=== PATIENT | female | born 1945 | race Caucasian/White ===

== ENCOUNTER → 2017-02-13 | Outpatient (CLI) | payer OTHER, BC ==
[~2017-02-13] VITALS: Ht 165.1 cm; Wt 92.1 kg
[~2017-02-13] MED LIST: ACTONEL 35 MG35 M1 PO; ASPIRIN81 M2 PO; BUTRANS1 EAC1 TD; BUTRANS1 EAC2 TD; CALCIUM 500 +1 EAC5 PO; CALCIUM CITRAT1 EA19 PO; CRESTOR20 MG PO; ERYTHROCIN STE250 MG PO; FENTANYL PA25 MCG/HR TP; FIBER SUPPLEME283 GM; FISH OIL 1,0001 EAC9 PO; GABAPENTIN PO; GABAPENTIN100 MG PO; HYDROCODON-ACE1 EAC4 PO; HYDROCODON-ACE1 EAC5 PO; LEVOTHYROXIN0.112 M1 PO; LIBRAX; LIBRAX PO; LINZESS290 MCG PO; LIPITOR40 MG PO; LISINOPRIL20 MG PO; LOPRESSOR50 PO; MAGOX 400400 MG PO; MIRALAX255 GM PO; MOBIC15 MG PO; MOVANTIK25 MG PO; MULTIVITAMINS1 EAC7 PO; NATURAL LUTEIN20 MG PO; NEURONTIN100 MG PO; NEURONTIN600 MG PO; NORCO 10-325 T1 EACH PO; NORTRIPTYLINE H10 M2 PO; NORTRIPTYLINE H25 M3 PO; NORTRIPTYLINE H50 M3 PO; OMEPRAZOLE40 MG PO; ONDANSETRON HCL4 M2; PAMELOR75 MG PO; POTASSIUM20 PO; PRINZIDE 20-251 EACH PO; REGLAN 10 MG TA10 MG PO; SENNA-S TABLET1 EACH PO; SYNTHROID137 MCG PO; SYNTHROID150 MCG PO; TRAZODONE HCL50 MG PO; VYTORIN 10-801 EACH PO; XANAX 0.5 MG0.5 MG PO; ZANAFLEX4 MG PO; ZOLOFT 50 MG TA50 MG PO; ZOLOFT100 MG PO; ZOLOFT50 MG PO; [UNRECOGNIZED DRUG - OTHER] PO
--- NOTE | ~2017-02-13 | HPC ---
[facility] [address] [place] [address] PAIN MANAGEMENT CONSULTATION Name: FRANKIETIFFANI K Room #: REG [facility]ENTER[facility] Carlos.#: [id number] Admission: 02/13/17 Attend Phys: Faizan Rowley MD Discharge: Date of : 41 Report #: [id number] THIS REPORT FOR: //name// CC: Leandro Rowley DATE OF SERVICE: 02/13/2017 Followup visit for management of chronic abdominal pain. The patient returns to the pain clinic today for renewal of her medication. We had a long discussion today focusing mostly on polypharmacy. The patient has longstanding abdominal pain and has been using medications, hydrocodone 10/325 taken up to 4 times a day along with tizanidine to help control her pain. Today, she reports that she is having increasing constipation. She also has a restless right foot. It is only the right foot and it only involves the ankle down. She has seen a automotive parts person and orthopedist and she has seen a neurologist, she is now scheduled for an EMG. She states the restless foot is only at night time. It is disturbing to her. She scores that discomfort as a 9, although she does not describe it as pain. Her chronic lower abdominal pain has been described as spasmodic. Over a period of time, she has consistently reported that it helps with her pain to take the hydrocodone. We have used palliative treatment for her under close observation. She says that recently despite Senna, MiraLax and even the use of Movantik and Linzess, her constipation has worsened. She has self-tapered it to 30 mg a day and I have encouraged her to taper even further. The led a long discussion today about polypharmacy. She is receiving multiple centrally acting medications from different physicians including myself. Centrally acting medicines are gabapentin, hydrocodone, tizanidine, nortriptyline, alprazolam. We talked about how medications can work in combination providing paradoxical responses including insomnia. We discussed the important side effect of constipation for her abdominal pain. I do think it is valuable for her to try and taper as low as she can or completely off of the hydrocodone to see how she feels. Tapering instructions were provided. PHYSICAL EXAMINATION: GENERAL: She is pleasant, alert and oriented. No signs of overmedication or depression. VITAL SIGNS: Blood pressure 150/92 and BMI is 33.8. ABDOMEN: Reveals diffuse tenderness particularly in the lower portion of the abdomen and across the pelvis. Bowel sounds are present. EXTREMITIES: Examination of the foot reveals no allodynia, no light touch discomfort, no numbness. Good range of motion of the ankle joint. Pulses are [facility] [address] [place] [address] PAIN MANAGEMENT CONSULTATION Name: TIFFANI DAVID Room #: REG SHEKHAR Pérez#: [id number] Admission: 02/13/17 Attend Phys: Faizan Rowley MD Discharge: Date of : 41 Report #: [id number] palpable in the lower extremities with bounding dorsal pedis noted on the right foot. Straight leg raising is negative. She has no radicular type sensations. IMPRESSION: 1. Chronic abdominal pain. 2. Restless right foot syndrome. 3. Management of opioid medication. Medications were renewed with a reduction in dose and tapering instructions. I plan to see her back in the pain clinic in 3 months. By: [id number] Faizan Rowley MD /nt
[2017-02-13 09:07] VITALS: BP 150/92
== END ==
LOC: PAIN 06:39
DX: R10.9 Unspecified abdominal pain (principal); G25.81 Restless legs syndrome; I10 Essential (primary) hypertension; Z87.891 Personal history of nicotine dependence

== ENCOUNTER → 2017-03-30 | Outpatient (CLI) | payer OTHER, BC ==
[~2017-03-30] VITALS: Ht 165.1 cm; Wt 92.5 kg
[~2017-03-30] MED LIST changes: +COZAAR 25 MG TA25 M1 PO; +ONDANSETRON HCL4 M2 PO
--- NOTE | ~2017-03-30 | HPC ---
[facility] [address] [place] [address] PAIN MANAGEMENT CONSULTATION Name: FRANKIETIFFANI K Room #: REG [facility].#: [id number] Admission: 03/30/17 Attend Phys: Faizan Rowley MD Discharge: Date of : 41 Report #: [id number] THIS REPORT FOR: //name// CC: Leandro Rowley [facility] DATE OF SERVICE: 03/30/2017 Followup visit for new onset lumbar radicular pain. The patient returns to pain clinic today, is complaining primarily of pain into her right leg. Pain is severe, she scores as high as 9 at nighttime, it radiates through her right calf into her foot with a burning sensation. It is constant, lowest score is a 6/10 during the daytime. She has tried gabapentin with no help, also carbamazepine provided by her primary which caused nausea. She is on no medication other than hydrocodone and she says it does not seem to help the pain much. X-rays have shown that there is no worrisome malalignment, although she does have age-related diffuse disk desiccation and facet hypertrophy. This is particularly notable at L5-S1. There is fortunately no notable canal or foraminal compromise. An EMG was performed; however, which showed that she has S1 radiculopathy, which would be consistent on the right with her symptoms. She is here today for an epidural injection. I also provided for her medication chronically due to abdominal pain. She used hydrocodone , which has been renewed within the last month under our agreement, she does not need medication. PHYSICAL EXAMINATION: Affect is pleasant. She is able to move from sitting to standing position but walks with mild antalgic features. Blood pressure is 122/72, heart rate 100. Straight leg raising is positive, reproducing some symptoms into the calf. No focal weakness is noted; however, and sensation is normal to light touch. IMPRESSION: Lumbar radiculopathy on the right. This involves L5 and she has EMG evidence also and S1 radicular changes. PLAN: Epidural steroid injection, right paramedian L5-S1. The patient was taken to fluoroscopic suite, placed prone, skin prepped with ChloraPrep. Skin anesthetized in the right of midline at L5-S1. A 20-gauge Tuohy epidural needle advanced on the first attempt in the epidural space with loss of resistance. No blood or CSF aspirated. 1 mL of Omnipaque injected. [facility] [address] [place] [address] PAIN MANAGEMENT CONSULTATION Name: TIFFANI DAVID Room #: REG PIPERTheo Pérez#: [id number] Admission: 03/30/17 Attend Phys: Faizan Rowley MD Discharge: Date of : 41 Report #: [id number] Nice spread of dye was observed along the L4, L5 and S1 nerve root in lateral recess followed by 3 mL of 0.5% lidocaine mixed with 80 mg triamcinolone. She tolerated the procedure well and was observed for 45 minutes and discharged with a followup visit planned in 2 months. By: [id number] 1724 Faizan Rowley MD /nt
[2017-03-30 09:17] VITALS: BP 125/76
== END ==
LOC: PAIN 06:59
DX: M54.16 Radiculopathy, lumbar region (principal)

== ENCOUNTER → 2017-04-20 | Outpatient (CLI) | payer OTHER, BC ==
[~2017-04-20] VITALS: Ht 165.1 cm; Wt 91.7 kg
[~2017-04-20] MED LIST changes: +SENOKOT-S1 TA1 PO
--- NOTE | ~2017-04-20 | HPC ---
[facility] [address] [place] [address] PAIN MANAGEMENT CONSULTATION Name: HA DAVIDMitesh Castaneda Room #: REG [facility].#: [id number] Admission: 04/20/17 Attend Phys: Faizan Rowley MD Discharge: Date of : 41 Report #: [id number] THIS REPORT FOR: //name// CC: Leandro Rowley DATE OF SERVICE: 04/20/2017 Followup visit for chronic abdominal pain, now with right foot spasms. The patient returns to pain clinic today and says that the epidural injection did not help a slight bit. Pain is just the same as it was before. She does have an EMG the suggested that she has a right lumbar chronic radiculopathy, although I am not convinced that this correlates well with her pain. She does not have any radiating component. All of her pain is in her foot. She describes it more of a spasm. It is worse as the day goes on with weightbearing. There is no pain in the calf, thigh, buttock or back. MEDICATIONS: Movantik, Cozaar, Zofran, hydrocodone, tizanidine, Actonel, omeprazole, nortriptyline, metoprolol, Synthroid, rosuvastatin, Senokot S, calcium, Lutein, multivitamins and alprazolam. ALLERGIES: None. PHYSICAL EXAMINATION: GENERAL: Her affect is pleasant. VITAL SIGNS: Blood pressure is 143/80, heart rate 85 and respirations 16. BMI is 33. MUSCULOSKELETAL: Examination of the back reveals no tenderness. Good range of motion. Straight leg raising does not reproduce pain. Tenderness of the hip is not present. Good range of motion of the hip, knee and ankle joint. She has no light touch allodynia or discomfort in the foot, but tenderness across the heel and also along the sole of her foot and dorsum as well. IMPRESSION: Chronic intractable foot pain with neuropathic features. Additional consideration would be the possibility of plantar fasciitis with a bit of an unusual presentation. RECOMMENDATIONS: I do not think she is going to benefit from an injection at this time. So, I have suggested instead we continue her hydrocodone and begin a compound cream. Orders were faxed over to start pharmacy for a compound cream containing ketoprofen, baclofen, cyclobenzaprine, gabapentin, lidocaine and Lipoderm mixed with 2 refills. She is to apply one inch or so to the affected area 3-[address] [address] PAIN MANAGEMENT CONSULTATION Name: TIFFNAI DAVID Room #: REG CL Beto#: [id number] Admission: 04/20/17 Attend Phys: Faizan Rowley MD Discharge: Date of : 43 Report #: [id number] Her followup visit is planned in 1-2 months. I renewed her medication for oral control as well, hydrocodone 10/325 one tablet 4 times daily under the terms of our opioid agreement. She understands the importance of safeguarding all these medications and will keep them solely for her own use. Followup visit is planned as needed. <ELECTRONICALLY SIGNED> By: Faizan Rowley MD 04/20/17 1714 1405 1501 Faizan Rowley MD /nt
[2017-04-20 09:13] VITALS: BP 143/80
== END | disposition home or self-care (01) ==
LOC: PAIN 06:54
DX: M25.571 Pain in right ankle and joints of right foot (principal); G89.29 Other chronic pain; F11.20 Opioid dependence, uncomplicated; Z79.899 Other long term (current) drug therapy; Z87.891 Personal history of nicotine dependence

== ENCOUNTER → 2017-07-31 | Outpatient (CLI) | payer OTHER, BC ==
[~2017-07-31] VITALS: Ht 177.8 cm; Wt 95.6 kg
--- NOTE | ~2017-07-31 | HPC ---
[facility] [address] [place] [address] PAIN MANAGEMENT CONSULTATION Name: TIFFANI DAVID Room #: REG [facility] Osito.#: [id number] Admission: 07/31/17 Attend Phys: Faizan Rowley MD Discharge: Date of : 43 Report #: [id number] THIS REPORT FOR: //name// CC: Leandro Rowley DATE OF SERVICE: 07/31/2017 REASON FOR VISIT: She is here for followup visit, right lower extremity pain with radiation into calf and foot. HISTORY OF PRESENT ILLNESS: The patient returns to pain clinic today complaining primarily of right foot spasms. She frequently reminded me that this is not what she would describe as pain but in her terms uncomfortable spasm-like sensation. We spent some time trying to recess the quality of the pain, I would describe it as a neuropathic-like dysesthesia. She has previously described it only in her foot. Today, it appears to be more radicular following a distribution through the calf. She has had evaluation by Neurology, and this has been deemed a chronic radiculopathy. Previously, I felt that this was not correlating as well with the pain description, but today they seem to fit. Pain is worse in the great toe, which would be consistent with the L4 distribution. She has chronic abdominal pain, which is her primary pain generator and has been on [place] for a number of years under terms of an opioid agreement. This has only modest benefit for her foot. She has had trials of antidepressant and anti-seizure drugs including gabapentin and Lyrica with little improvement. PHYSICAL EXAMINATION: Her blood pressure is 144/85. Heart rate is 95. Her back is mildly painful. She has no pain with forward flexion, slight increase in pain with back extension radiating into the right leg. Straight leg raising is negative. Sensation is normal. No focal weakness is noted. Deep tendon reflexes are absent in the knee and ankle. IMPRESSION: 1. Chronic abdominal pain. 2. Right leg pain with EMG evidence suggesting right chronic lumbar radiculopathy. Majority of pain or dysesthesia follows the L4-L5 distribution. RECOMMENDATIONS: Right L4-L5 transforaminal epidural injection under fluoroscopic guidance. Potential benefits and risks reviewed. Goals of treatment discussed. She would like to proceed today with an injection trial. Further injections and other treatments will depend upon her response today. PROCEDURE: She was taken to the fluoroscopic suite for treatment and placed prone. She was prepped with ChloraPrep, and skin was anesthetized over the L4-L5 neural foramen. Using triplanar fluoroscopic views, I advanced the needle [address] [address] PAIN MANAGEMENT CONSULTATION Name: TIFFANI DAVID Room #: REG SHEKHAR Pérez#: [id number] Admission: 07/31/17 Attend Phys: Faizan Rowley MD Discharge: Date of : 43 Report #: [id number] into the neural foramen without difficulty of 1 mL of Omnipaque. It was injected demonstrating spread of dye into the epidural space. It was followed by 3 mL of 0.5% lidocaine mixed with 80 mg of triamcinolone. She tolerated the procedure well and was observed for 45 minutes and discharged. Followup visit planned as needed in 1-2 months. PLAN: I have renewed her medication at previous visit, and I reviewed her responsibilities under terms of our opioid agreement. By: 1608 [id number] Faizan Rowley MD /nt
[2017-07-31 08:59] VITALS: BP 144/85
== END | disposition home or self-care (01) ==
LOC: PAIN 07:04
DX: M54.16 Radiculopathy, lumbar region (principal)

== ENCOUNTER → 2017-11-27 | Outpatient (CLI) | payer OTHER, BC ==
[~2017-11-27] VITALS: Ht 165.1 cm; Wt 94.3 kg
[~2017-11-27] MED LIST changes: +ADULT SUPPOSIT1 EACH RECTAL; +AMITRIPTYLINE H10 M3 PO; +CYMBALTA30 MG PO; +ERYTHROMYCIN250 MG PO; +FLEXERIL PO; +LOSARTAN-HCTZ1 EAC1 PO; +LYRICA 75 MG CA75 MG PO; +OXYCODONE-ACET1 EAC2 PO; +SYSTANE BALANCE10 ML OPHTHALMIC; +TRAZODONE HCL100 MG PO
--- NOTE | ~2017-11-27 | HPC ---
[facility] [address] [place] [address] PAIN MANAGEMENT CONSULTATION Name: FRANKIETIFFANI K Room #: REG [facility].#: [id number] Admission: 11/27/17 Attend Phys: Faizan Rowley MD Discharge: Date of : 43 Report #: [id number] THIS REPORT FOR: //name// CC: Leandro Rowley DATE OF SERVICE: 11/27/2017 SUBJECTIVE: Followup visit for chronic abdominal pain and chronic low back pain with radiculopathy. The patient returns to the pain clinic today and was in the clinic for a 25-minute followup visit to discuss her current use of medications. She has nearly run out of medication, failing to make an appointment for refills on her opioid medication provided under terms of written opioid agreement. Her pain has increased substantially with the reduction in medication. She scores it as a 7/10. Pain is in her low abdomen and chronic. She also has pain in her right foot, which involves the great toe and the top of her foot in the L4 and L5 distribution. She says that she feels a constant turning sensation there and has a "charley horse" sensation also in the foot, suggesting some muscle spasm. She has seen Dr. Siddhartha Chandler who she reports has suggested that I consider a selective right S1 nerve root block. We discussed this later in her visit. She has found nothing other than the use of modest dose of opioid taken on a daily basis to help with her abdominal pain and her leg pain. Despite the benefit, she acknowledges she is disappointed that we do not have more to offer her. She has had trials of multiple medications including nonsteroidal anti-inflammatory drugs and several neuropathic medications including gabapentin, Tegretol and she is currently on an increasing dose of Lyrica directed by Dr. Chandler. She has not found it to be helpful. She has tried to remain active. She does suffer from chronic mood disorder and often presents depressed in our office. MEDICATIONS: All medications were reviewed and reconciled. They are as follows: Trazodone, Lyrica, hydrocodone 10/325 four tablets daily for a total of 40 morphine equivalents per day, Movantik p.r.n. treating her only side effect constipation, Cozaar, fiber supplements, [place], omeprazole, metoprolol, levothyroxine, Crestor, Senokot-S, Lutein, multivitamins and alprazolam 0.5 mg taken chronically as needed for anxiety. ALLERGIES: None. PQRS REVIEW: She does not complain of significant osteoarthritis[place] [address] PAIN MANAGEMENT CONSULTATION Name: TIFFANI DAVID Room #: REG [facility]ERS[facility].#: [id number] Admission: 11/27/17 Attend Phys: Faizan Rowley MD Discharge: Date of : 43 Report #: [id number] smoke. She is on an opioid provided to her with written agreement. Terms of our opioid agreement have been reviewed. We have discussed at some length her responsibilities with the medication, the opioid crisis in the [place] and the CDC guidelines. The patient is not a fall risk. I have reviewed all other medications for potential interactions and side effects. PHYSICAL EXAMINATION: GENERAL: Affect is depressed. VITAL SIGNS: Blood pressure 152/94, heart rate 81, respirations 16. She is 5 feet 5 inches, 208 pounds with a BMI of 34.6. MUSCULOSKELETAL: We briefly discussed behavioral changes to help manage weight. She has tenderness throughout her abdomen. She has pain in her right leg. There is diminished sensation in the L4-L5 distribution on the right foot. Straight leg raising is mildly positive suggesting a radicular mechanism. IMPRESSION: 1. Chronic upon abdominal pain. 2. Management of opioid medication under terms of written opioid agreement within the CDC guidelines. 3. Right leg pain with EMG evidence suggesting right chronic lumbar radiculopathy and dysesthesia and numbness in the L4-L5 distribution. RECOMMENDATIONS: I renewed her medications for pain, but I have made an opioid rotation to oxycodone 10/325 three tablets a day. This is a modest increase in her morphine milligram equivalency from 40-45 mg. Opioid rotation is oftentimes helpful. She will be taking fewer tablets per day. She will safeguard her medications as described above in relationship to her agreement and the CDC guidelines. She will follow up with Dr. Chandler and I will try to keep in touch with Dr. Chandler regarding our approach to managing her chronic pain. At this stage, I need to discuss with Dr. Chandler's recommendation to her of undergoing an S1 nerve root block. This is not directly correlating with her pain distribution and I am not sure what to do with the information based upon its diagnostic purposes. Follow up in 3 months. We will try to get a hold with Dr. Chandler. <ELECTRONICALLY SIGNED> By: Faizan Rowley MD 01/10/18 1640 1230 0011 Faizan Rowley MD /nt
[2017-11-27 10:08] VITALS: BP 152/94
== END ==
LOC: PAIN 06:59
DX: M54.16 Radiculopathy, lumbar region (principal); F11.90 Opioid use, unspecified, uncomplicated; R10.9 Unspecified abdominal pain

== ENCOUNTER → 2018-01-11 | Outpatient (CLI) | payer OTHER, BC ==
[~2018-01-11] VITALS: Ht 165.1 cm; Wt 90.5 kg
--- NOTE | ~2018-01-11 | HPC ---
[facility] [address] [place] [address] PAIN MANAGEMENT CONSULTATION Name: FRANKIETIFFANI Room #: REG [facility].#: [id number] Admission: 01/11/18 Attend Phys: Faizan Rowley MD Discharge: Date of : 41 Report #: [id number] THIS REPORT FOR: //name// CC: Leandro Rowley DATE OF SERVICE: 01/11/2018 REASON FOR VISIT: Followup visit for chronic abdominal pain and chronic low back pain. HISTORY OF PRESENT ILLNESS: The patient returns to the pain clinic today and is not favoring the use of oxycodone over hydrocodone. She states it does not help as much and she is having some itching. She has been on hydrocodone under terms of written opioid agreement dating back over 5 years in our clinic. She would like to return to it. We have had an extensive discussion today about the ongoing opioid crisis in [place], the CDC guidelines for opioid agreement and her basic response. She is exceptionally grateful for the medication. It provides good pain relief. She has no side effects with hydrocodone other than some mild constipation. It provides meaningful relief for her. She understands her responsibilities and safeguarding the medication. I will continue it for her. I have reviewed the PQRS assessment. She does not have osteoarthritis. Her BMI is 33.2. She monitors her diet. Her diastolic blood pressure slightly elevated at 94 and she is on an antihypertensive medication. All medications were reviewed and reconciled. She is instructed to remain on his medications. She is not a fall risk. She is not on a blood thinner. She has signed an opioid agreement first established in 2012 and reevaluated and resigned in June of 2016. She has completed an opioid risk tool as well as a functional assessment tool and goals for treatment have been established in order to travel, spend time with her grandkids and be as active as possible. Impacted pain scores 43/70. IMPRESSION: 1. Chronic back pain with radiculopathy, L5-S1 distribution. 2. Chronic upper abdominal pain. 3. Management of opioid medications under terms of written agreement. [facility] [address] [place] [address] PAIN MANAGEMENT CONSULTATION Name: DAVIDTIFFANI Room #: REG [facility]#: [id number] Admission: 01/11/18 Attend Phys: Faizan Rowley MD Discharge: Date of : 41 Report #: [id number] PLAN: Followup visit planned in 3 months. Medications were provided to her today under terms of that written agreement. <ELECTRONICALLY SIGNED> By: Faizan Rowley MD 02/19/18 1408 1528 0346 Faizan Rowley MD /nt
[2018-01-11 10:11] VITALS: BP 149/94
== END ==
LOC: PAIN 07:21
DX: M54.17 Radiculopathy, lumbosacral region (principal); G89.29 Other chronic pain; R10.10 Upper abdominal pain, unspecified; F11.90 Opioid use, unspecified, uncomplicated

== ENCOUNTER → 2018-04-19 | Outpatient (CLI) | payer OTHER, BC ==
[~2018-04-19] VITALS: Ht 165.1 cm; Wt 88.2 kg
[~2018-04-19] MED LIST changes: -ADULT SUPPOSIT1 EACH RECTAL; -CYMBALTA30 MG PO; -LOSARTAN-HCTZ1 EAC1 PO
--- NOTE | ~2018-04-19 | HPC ---
[facility] [address] [place] [address] PAIN MANAGEMENT CONSULTATION Name: FRANKIETIFFANI Room #: REG SHEKHAR Osito.#: [id number] Admission: 04/19/18 Attend Phys: Faizan Rowley MD Discharge: Date of : 41 Report #: [id number] THIS REPORT FOR: //name// CC: Leandro Rowley DATE OF SERVICE: 04/19/2018 Followup visit for chronic abdominal pain as well as low back pain and radiculopathy. The patient returns to clinic today for renewal of her opioid medication. She has been on a written opioid agreement now for 5 years. We reviewed her contract and she resigned it at her last visit. Drug testing has been performed and is appropriate for medications prescribed. The patient is a low risk of addiction with an ORT score of 1. Goals are to travel and spend more time with grandchildren. She is working on meeting these goals. Her pain impact score is 43/70. Today, she reports her pain intensity is 6. This is fairly average score for her. She does not complain of arthritis, but is faced with chronic back pain related to degenerative changes resulting in radiculopathy in L5-S1 distribution on the left. In addition, she has chronic upper abdominal pain. Exact cause remains elusive and there has been consideration in the past of sending her to [facility]. She does, however manage reasonably well with medication and at this point, we are focusing on symptom management. PQRS review shows that she is 5 feet 5 inches with a BMI of 32.3. She is trying to keep her diet nutritional and addressing weight loss. She is not a fall risk. Does not use a cane. She is on no blood thinners and although she has hypertension, has been well treated under the care of Dr. Metcalf. Her opioid treatment is well outlined above and she is followed closely at 3-month intervals. PHYSICAL EXAMINATION: Also, shows her to be pleasant, alert and oriented, without signs of depression, anxiety or overmedication. Abdomen is mildly tender. She is able to move easily from sitting to standing position, ambulates without antalgic features. IMPRESSION: 1. Chronic back pain with radiculopathy, L5-S1 distribution. 2. Chronic abdominal pain with irritable bowel syndrome. 3. Management of high risk opioid medications under terms of written opioid agreement. [address] [address] PAIN MANAGEMENT CONSULTATION Name: HA DAVIDMitesh Castaneda Room #: REG SHEKHAR Pérez#: [id number] Admission: 04/19/18 Attend Phys: Faizan Rowley MD Discharge: Date of : 41 Report #: [id number] I have given her prescriptions today for her hydrocodone 10/325, which she is now taking 2 in the morning, 2 in the afternoon and 1 in the evening. Her total MME is 50. This puts her in the low to moderate category for the CDC guideline. I talked about the importance of safeguarding the medication and we will see her back in the pain clinic in 3 months. By: 1225 1629 Faizan Rowley MD /nt
[2018-04-19 10:33] VITALS: BP 136/75
== END ==
LOC: PAIN 06:52
DX: M54.16 Radiculopathy, lumbar region (principal); G89.29 Other chronic pain; M54.5 Low back pain; R10.9 Unspecified abdominal pain; K58.9 Irritable bowel syndrome, unspecified; Z79.899 Other long term (current) drug therapy

== ENCOUNTER → 2018-09-06 | Outpatient (CLI) | payer OTHER, BC ==
[~2018-09-06] VITALS: Ht 165.1 cm; Wt 84.6 kg
[~2018-09-06] MED LIST changes: +ADULT SUPPOSIT1 EACH RECTAL; +CYMBALTA30 MG PO; +LOSARTAN-HCTZ1 EAC1 PO
--- NOTE | ~2018-09-06 | HPC ---
[facility] [address] [place] [address] PAIN MANAGEMENT CONSULTATION Name: FRANKIETIFFANI Room #: REG [facility] Beto#: [id number] Admission: 09/06/18 Attend Phys: Juhi Blood Discharge: Date of : 41 Report #: [id number] THIS REPORT FOR: //name// CC: Juhi Vasquez DATE OF SERVICE: 09/06/2018 CHIEF COMPLAINT: Followup visit today for her chronic abdominal pain and low back pain with radiculopathy, to discuss medications and possible spinal cord stimulator versus injection. HISTORY OF PRESENT ILLNESS: The patient has appointment today for her medication refill and the patient has also brought results from her recent [facility] with her today. The patient tells me that she went to [facility] in July and they are recommending a spinal cord stimulator device to her. She shows me a [employer] pamphlet that they are recommending that Dr. Rowley implant. They also told her that she should possibly increase her antidepressant, but she will discuss with her psychiatrist and also possible injections, facet injections. I did review her MRI and these reports with the patient. The patient complains of lower abdominal pain, which is ongoing. She also states she has pain across her low back and her right foot with some numbness and tingling in her right calf. She rates her pain 9/10 today. Her abdominal pain is worse as the day goes on, but her leg pain and back pain are constant at 100%. This numbness and tingling has gotten worse, so it is fairly new. States her medication does help some, but would like to trial a spinal cord stimulator. ALLERGIES: REGLAN. CURRENT MEDICATIONS: Cymbalta 30 mg once a day, Hyzaar 100/25 tablet once a day, hydrocodone 10/325 one to one and a half every 4 hours p.r.n., erythromycin daily, Zofran 4 mg daily, Movantik 25 mg daily, omeprazole 40 mg twice a day, metoprolol 50 mg daily, thyroid medicine 112 mcg daily, Crestor 20 mg daily, Senokot, calcium, Lutein, multivitamin and Xanax 0.5 one tablet daily. PQRS: 1. The patient has a history of osteoarthritis in her back. Denies Rheumatoid arthritis. 2. Height 5 feet 5 inches, weight 186. BMI is 31.1. 3. Vital signs: Blood pressure 121/80, pulse is 88, respirations 20, oxygen sat is 96% on room air. 4. Pain score of 9/10 5. Fall risk: Does complain of some dizziness, but has not fallen in the last 3 months and does not need help walking or understanding. 6. The patient is not [place] [address] PAIN MANAGEMENT CONSULTATION Name: DAVIDTIFFANI Room #: REG SHEKHAR Pérez#: [id number] Admission: 09/06/18 Attend Phys: Juhi Blood Discharge: Date of : 41 Report #: [id number] 7. History of hypertension. 8. The patient is on opioid therapy greater than 6 weeks, therefore, opioid signed contract is on the chart. 9. Her opioid risk assessment tool is low. Her functional assessment is 43/70. 10. Recreational drug use, said she has never used. Does state she is a former smoker, but does not smoke now and denies alcohol use. [place] and [place] PDMP are on the chart with no aberrant abuse, behaviors noted. The patient does state that she safeguards all of her medications. PHYSICAL EXAMINATION: GENERAL: The patient appears to be a very pleasant 73-year-old that appears her stated age. She is alert and orientated without signs of overmedication or anxiety, is struggling with some depression. HEENT: Normocephalic, atraumatic. Extraocular eye muscles are intact. Mucous membranes are moist. MUSCULOSKELETAL: She does have slight decreased strength on her right lower extremity. Tenderness across her lumbosacral area of her spine around the L4-L5, L5-S1 dermatome. The patient is able to move from standing to sitting position slowly, ambulates without antalgic features. She does walk in a wide base stance though. SKIN: The patient also has old bruises, burn olson in her skin from an old heating pad. No open lesions are noted at this time. ASSESSMENT: 1. Chronic radicular low back pain, L2-L3 to L5 S1, various dermatomes. 2. Chronic abdominal pain with irritable bowel syndrome. 3. Management of high risk opioid management. 4. Depression. 5. Mild peripheral neuropathy. PLAN: 1. After much discussion today about spinal cord stimulator versus [employer] devices based on the reports and MRI from [facility], showing multilevel early spondylitic changes, [id number] from L4-L5 canal stenosis and multiple facet joint irritation at multiple levels. The patient has decided that we will proceed with a facet joint injection by Dr. Faizan Rowley. 2. We did talk about spinal cord stimulator, the use of them, when they are beneficial and the insurance guidelines for placement of a spinal cord stimulator. The patient does have a psychologist that she sees and information was given to her as to what the psychological evaluation is needed per Medicare guidelines that she will take to the psychologist. She will proceed in that fashion after we have done facet joint injections to see if those have been beneficial. If those have not been beneficial, then the patient will proceed with obtaining her psychological evaluation having it sent back to the clinic and a precertification trade clerk will send everything off for Medicare for approval [address] [address] PAIN MANAGEMENT CONSULTATION Name: DAVIDTIFFANI Room #: REG SHEKHAR Pérez#: [id number] Admission: 09/06/18 Attend Phys: Juhi Blood Discharge: Date of : 41 Report #: [id number] for a trial of a [employer] spinal cord stimulator by Dr. Faizan Rowley. 3. The patient was given refills of her medication of hydrocodone 10/325 one to one and a half q. 4 hours, #150 for today, 4-week and 8-weeks. 4. An appointment was made for facet joint injections by Dr. Faizan Rowley for early next week. 5. The patient will also discuss with her psychologist about increasing her Cymbalta to 60 mg twice a day as per the [facility] has recommended. The patient was seen in collaboration today with Dr. Faizan Rowley who spoke with the patient as well. <ELECTRONICALLY SIGNED> By: Juhi Blood 09/07/18 1221 [id number] Juhi Blood /nt
[2018-09-06 09:02] VITALS: BP 121/80
== END ==
LOC: PAIN 06:50
DX: M54.16 Radiculopathy, lumbar region (principal); M54.17 Radiculopathy, lumbosacral region; K58.9 Irritable bowel syndrome, unspecified; G89.29 Other chronic pain; F32.9 Major depressive disorder, single episode, unspecified; G62.9 Polyneuropathy, unspecified; Z79.891 Long term (current) use of opiate analgesic

== ENCOUNTER → 2018-09-20 | Outpatient (CLI) | payer OTHER, BC ==
[~2018-09-20] VITALS: Ht 160 cm; Wt 84.1 kg
[~2018-09-20] MED LIST changes: +CYMBALTA60 MG PO
--- NOTE | ~2018-09-20 | HPC ---
[facility] [place] [facility] [place] [address] PAIN MANAGEMENT CONSULTATION Name: HA DAVIDA Leonel Room #: REG Theo BoydJean CarlosAmmon.#: [id number] Admission: 09/20/18 Attend Phys: Faizan Rowley MD Discharge: Date of : 43 Report #: [id number] THIS REPORT FOR: //name// CC: Siddhartha Rowley DATE OF SERVICE: 09/20/2018 CHIEF COMPLAINT: Followup visit for chronic low back pain and pain in the right foot. HISTORY OF PRESENT ILLNESS: The patient returns to pain clinic today for injections and also to discuss his spinal cord stimulator trial that was recommended by the [facility]. She has some ongoing pain across the lumbosacral segment. Lumbar facet injections and medial branch nerve blocks will be performed today for diagnostic purposes and also to provide some symptomatic relief. I will use a small amount of triamcinolone which might provide some lasting relief if her pain is related to facet arthropathy. The patient was recently seen on 09/06/2018 by Juhi Blood, advanced nurse practitioner, and medications were renewed per terms of written agreement. Please refer to that note. IMPRESSION: 1. Chronic spondylosis with low back pain. 2. Irritable bowel syndrome. 3. History of depression. 4. Management of high risk opioid medication. 5. Right foot pain with neuropathy. I reviewed once again the note from the [facility] dated 08/20/[address] Smiley from the Pain Management Service. They described a descriptive syndrome of painful leg and moving toe syndrome. This is certainly a broad clinical diagnosis. She has mild peripheral neuropathy as well. I described to her facet injections as outlined in the report that was provided to her and to her clinic. I have also described spinal cord stimulation for her and she has already completed her psychological evaluation by Dr. Hans Guerin, at the [facility]. Dr. Guerin has opined that she is an appropriate candidate for spinal cord stimulation acknowledging her ongoing depressive features. He has continued to support her ongoing stress management course. PROCEDURE: Bilateral L4-L5 and L5-S1 facet injections with triamcinolone and [facility] [place] [facility] [address] [place] [address] PAIN MANAGEMENT CONSULTATION Name: TIFFANI DAVID Room #: REG [facility]#: [id number] Admission: 09/20/18 Attend Phys: Faizan Rowley MD Discharge: Date of : 41 Report #: [id number] bupivacaine. She was taken to the fluoroscopic suite for this procedure, she was placed prone, skin prepped with ChloraPrep first on the left. A careful approach was made to the facet joints at L5-S1 and L4-L5 and a 21-gauge needle was advanced into the posterior inferior recess at each level. After negative aspiration, I injected a total of 1.5 mL of 0.5% bupivacaine along with 10 mg of triamcinolone. Some blocking of the medial branch nerve is expected with this volume. [place] were removed. Same was moved to the right and mirror image injections were performed within L4-L5 and L5-S1 facet joints on that side. She tolerated the procedure well. She was taken to recovery room. Pain score is 0 at discharge. We will schedule her for spinal cord stimulation trial for her lower extremity in the next month or two. By: [id number] Faizan Rowley MD /nt
[2018-09-20 13:53] VITALS: BP 148/69
== END | disposition home or self-care (01) ==
LOC: PAIN 06:30
DX: M47.816 Spondylosis without myelopathy or radiculopathy, lumbar region (principal); G89.29 Other chronic pain; M25.571 Pain in right ankle and joints of right foot; K58.9 Irritable bowel syndrome, unspecified; F32.9 Major depressive disorder, single episode, unspecified; G62.89 Other specified polyneuropathies; Z79.899 Other long term (current) drug therapy; Z88.8 Allergy status to other drugs, medicaments and biological substances; Z79.891 Long term (current) use of opiate analgesic

== ENCOUNTER → 2018-11-19 | Outpatient (CLI) | payer OTHER, BC ==
[~2018-11-19] VITALS: Ht 160 cm; Wt 81.6 kg
--- NOTE | ~2018-11-19 | HPC ---
[facility] [address] [place] [address] PAIN MANAGEMENT CONSULTATION Name: HA DAVIDMitesh Castaneda [facility]: [facility] [id number] Admission: 11/19/18 Attend Phys: Faizan Rowley MD Discharge: Date of : 41 Report #: [id number] THIS REPORT FOR: //name// CC: Leandro Rowley DATE OF SERVICE: 11/19/2018 CHIEF COMPLAINT: Followup visit for chronic low back pain with radiculopathy and chronic abdominal pain. The patient returns to pain clinic today to discuss her upcoming trial of spinal cord stimulation. She has her preauthorization requirements performed and I have reviewed her psych evaluation, which suggests that she is a reasonable candidate to go forward with placement of trial. She complains of pain in both legs, worse with sitting and lying down and actually better standing and in the upright position. She complains of heavy numbness in her right foot and a shooting pain. She also has chronic abdominal pain. I provide medication for her because of opioid/benzodiazepine restrictions. She was hassled about remaining on her alprazolam and has made efforts to go off of it. So far, she is doing well without it and so we will keep a close eye on that and make sure that her anxiety does not become out of control. I reviewed the process with her once again. We looked at the skeleton. I discussed the placement of trial leads. Risks and benefits were reviewed in some detail. She has a number of resources to review including those from [employer], which we have chosen and the [facility]. PHYSICAL EXAMINATION: GENERAL: She is pleasant, alert, oriented. No signs of depression or anxiety today. She reports that she feels moderately depressed. MUSCULOSKELETAL: Reveals good range of motion of the lumbar spine. Some hyperlordosis of the lumbosacral segment. There is tenderness across her spine. She has mild antalgic gait. She has mild straight leg raising discomfort noted bilaterally in the sitting position and radiating in the L4-L5 distribution. IMPRESSION: 1. Chronic low back pain with radiculopathy. Pain is bilateral, tends to follow a broad distribution from L2-S1. 2. Chronic abdominal pain with irritable bowel syndrome. 3. Chronic depression. 4. Anxiety disorder. [address] [address] PAIN MANAGEMENT CONSULTATION Name: TIFFANI DAVID Room #: REG Theo Pérez#: [id number] Admission: 11/19/18 Attend Phys: Faizan Rowley MD Discharge: Date of : 41 Report #: [id number] 5. Management of high risk opioid medication under terms of an opioid agreement. RECOMMENDATIONS: She needs no medication at this point using hydrocodone cautiously as prescribed last in August. We will see her within the next 5-7 days for her trial. She will remain off all medications and blood thinners. By: 1422 07 Faizan Rowley MD /rima
[2018-11-19 09:24] VITALS: BP 126/80
--- NOTE | 2018-11-19 09:33 | NUR ---
Pain Clinic Assessment: 1. History of Osteoarthritis: LOW BACK History of Rheumatoid Arthritis: Not Applicable 2. Height: 5 ft. 3 in. 160.0 cm. Weight: 180.0 lb. oz. 81.648 kg. Patient's BMI: 31.9 3. Vital Signs: BP: 126/80 Pulse: 90 Resp: 18 Temp: 02 Sat: 95 ECG Mon: 4. Pain Intensity: 10 5. Fall Risk: Dizziness: N Needs help standing or walking: N Fallen in the last 3 months: N Fall risk comments: 6. Patient on Blood Thinner: None 7. History of Hypertension: Y 8. Opioid Therapy greater than 6 weeks: Y Opiate Contract Signed: 06/27/16 9. Risk Assessment Tool Provided: LOW RISK 2/3 10. Functional Assessment Tool: 11. Recreational Drug Use: Never Drug Type: Tobacco Use: Former Smoker Tobacco Type: Amount or Packs/day: How Many Years: Alcohol Use: No Frequency: Quant:
== END ==
LOC: PAIN 07:28
DX: M54.16 Radiculopathy, lumbar region (principal); F32.9 Major depressive disorder, single episode, unspecified; F41.9 Anxiety disorder, unspecified; G89.29 Other chronic pain; K58.9 Irritable bowel syndrome, unspecified

== ENCOUNTER → 2018-11-29 | Outpatient (CLI) | payer OTHER, BC ==
[~2018-11-29] VITALS: Ht 160 cm; Wt 81.6 kg
--- NOTE | ~2018-11-29 | O ---
[facility] [place] [address] OPERATIVE REPORT Name: TIFFANI DAVID Room #: REG [facility]#: [id number] Admission: 11/29/18 Attend Phys: Faizan Rowley MD Discharge: Date of : 41 Report #: [id number] THIS REPORT FOR: //name// CC: NIA Rowley DATE OF SERVICE: 11/29/2018 PREOPERATIVE DIAGNOSES: Chronic intractable right leg and foot pain with radiculopathy involving L5-S1. POSTOPERATIVE DIAGNOSES: Chronic intractable right leg and foot pain with radiculopathy involving L5-S1. PROCEDURE: Trial of spinal cord stimulation. [employer] single lead Compact octad. INDICATIONS FOR PROCEDURE: The patient has longstanding pain, which has been poorly responsive to medication, physical therapy and injections. After much discussion and education, she is here today for trial of spinal cord stimulation. Goals on improved pain control and reduced reliance on hydrocodone which she takes 5 times daily. Procedure has been explained in great detail with potential risks and benefits. She is anxious to proceed. DESCRIPTION OF PROCEDURE: The patient was taken to the operative suite and placed in the prone position. She was prepped and draped in the usual fashion. ChloraPrep was utilized. She was given 1 gram of intravenous Ancef prior to the beginning of the procedure. She was monitored throughout the procedure with electrocardiogram, pulse oximeter and blood pressure. Fluoroscopic guidance was utilized. The skin was anesthetized to the right of midline at the level of the L2 spinous process. A 14-gauge curved Tuohy type epidural needle was advanced on the first attempt in the epidural space at T12-L1. Good loss of resistance was obtained. There was no blood or CSF aspirated. A 3 mL of normal saline was injected to dilate the epidural space. The lead was then advanced without any difficulty into the epidural space, initially placed at the level of mid T9 on AP projection. The lead appeared to be just to the right of midline. Testing showed that this was farther lateral physiologically, and she was experiencing some sensation within her abdomen. The lead was withdrawn and advanced further to the left, which appeared to be nearly perfectly midline to the spinous processes. Stimulation at this level provided good coverage of the entire right leg, in fact with movement on the lead, we were able to cover both the right and left leg. At this point, with consultation between myself and the [employer] representatives, we felt that this was an excellent single lead placement for the trial. The stylet was removed from the lead and the needle was removed. Skin was prepared with Mastisol for skin protection and the lead was then [address] [address] OPERATIVE REPORT Name: TIFFANI DAVID Room #: REG Theo Pérez#: [id number] Admission: 11/29/18 Attend Phys: Faizan Rowley MD Discharge: Date of : 41 Report #: [id number] with Steri-Strips and a protective dressing. Lead was connected to the programming device and secured to the patient's back. She tolerated the procedure very well. There were no complications. She was taken to recovery room in excellent condition. IV was removed. She was allowed to dress in her clothing for discharge, and she spent roughly 45 minutes with the [employer] representatives with education. I provided with my personal cell phone number in case any questions during her trial. We plan to follow up within the next 24-48 hours and over the weekend. If she has a good indication that this is something she would like to go forward with, we will remove the lead on Monday. Otherwise, the trial may continue as long as 6-7 days. By: [id number] Faizan Rowley MD /nt
[2018-11-29 07:24] VITALS: BP 119/72
--- NOTE | 2018-11-29 07:25 | NUR ---
Pain Clinic Assessment: 1. History of Osteoarthritis: LOW BACK History of Rheumatoid Arthritis: Not Applicable 2. Height: 5 ft. 3 in. 160.0 cm. Weight: 180.0 lb. oz. 81.648 kg. Patient's BMI: 31.9 3. Vital Signs: BP: 119/72 Pulse: 82 Resp: 16 Temp: 02 Sat: 95 ECG Mon: 4. Pain Intensity: 9 5. Fall Risk: Dizziness: N Needs help standing or walking: N Fallen in the last 3 months: N Fall risk comments: 6. Patient on Blood Thinner: None 7. History of Hypertension: Y 8. Opioid Therapy greater than 6 weeks: Y Opiate Contract Signed: 06/27/16 9. Risk Assessment Tool Provided: LOW RISK 2/3 10. Functional Assessment Tool: 11. Recreational Drug Use: Never Drug Type: Tobacco Use: Former Smoker Tobacco Type: Amount or Packs/day: How Many Years: Alcohol Use: No Frequency: Quant:
== END | disposition home or self-care (01) ==
LOC: PAIN 06:49
DX: M54.17 Radiculopathy, lumbosacral region (principal); G89.29 Other chronic pain; Z88.8 Allergy status to other drugs, medicaments and biological substances; Z79.899 Other long term (current) drug therapy; Z87.891 Personal history of nicotine dependence

== ENCOUNTER → 2018-12-06 | Outpatient (CLI) | payer OTHER, BC ==
[~2018-12-06] VITALS: Ht 160 cm; Wt 82.5 kg
[~2018-12-06] MED LIST changes: +BUSPIRONE HCL10 MG PO; +BUSPIRONE HCL7.5 MG PO
--- NOTE | ~2018-12-06 | H ---
[facility] [place] [address] HISTORY AND PHYSICAL Name: HA DAVIDMitesh Castaneda Room #: REG [facility].#: [id number] Admission: 12/06/18 Attend Phys: Faizan Rowley MD Discharge: Date of : 41 Report #: [id number] THIS REPORT FOR: //name// CC: Leandro Rowley DATE OF SERVICE: 12/06/2018 The patient returns to clinic today in followup for the conclusion of her spinal cord stimulation trial. She had no relief; in fact felt that both low frequency and high frequency stimulation caused some aggravation of her discomfort. She is one of many patients who are reluctant to use the word pain to describe their sensation. It is a spasmodic sensation that feels as though there are "snakes having sex in my lower leg and calf." Clearly it is a crawling movement-like sensation and spasm that irritates her. The stimulation provided no relief of this unfortunate discomfort. The lead was removed without incident. The site looks good. There were no problems. We dressed it with a Band-Aid and she is told that she can shower this evening when she returns home. We spent 10-15 minutes today reviewing her symptoms at length. The discomfort in her right leg occurs only with sitting and lying. Interestingly, when she stands it goes away. She does not have pain in her hip. She does not have pain in the thigh. The distribution through the lower leg is through the muscles and not necessarily superficial. There is no allodynia, no tenderness. There are no sympathetic changes noted. She has no weakness. She listed an extensive number of medications that she has tried to manage these symptoms through the neurologists without success. They are included on the medical record and include multiple anti-seizure medications, benzodiazepine, muscle relaxants, antipsychotic, Seroquel, carbidopa/levodopa, steroids and topical agents. She is already on hydrocodone 50 mg daily and this helps with her chronic abdominal pain, but she says it does not touch the pain in her leg. She has not had a trial off the medications, so my guess is that there is some benefit achieved also in her leg pain. She will continue on it. She was informed by her insurance company that they would not pay for her hydrocodone while she was on the benzodiazepine and she discontinued it willingly. She does have some anxiety and more difficulty sleeping at night. The non-benzodiazepine bupropion has been used as a suitable supplement and co-analgesic. I have given her a small prescription for 20 tablets of the buspirone 10 mg to be used in the evening one-half tablet, increasing to one tablet to see if it helps with her nocturnal pain. She can also try it during the day. If it does not work, we will stop it. This is the same advice I gave her for tizanidine, which she has [address] [address] HISTORY AND PHYSICAL Name: TIFFANI DAVID Room #: REG SHEKHAR Pérez#: [id number] Admission: 12/06/18 Attend Phys: Faizan Rowley MD Discharge: Date of : 41 Report #: [id number] now tried for over a month, which did not provide relief. PHYSICAL EXAMINATION: GENERAL: Today, she is pleasant, but discouraged because of her failure with the spinal cord stimulator trial. VITAL SIGNS: Blood pressure 138/82, heart rate 91, BMI 32.2. Pain intensity 9/10. EXTREMITIES: Examination of the lower leg bilaterally reveals no asymmetry in visual inspection. There is no allodynia. There is no localized tenderness. There is no muscle spasm palpable. Good range of motion is noted in the knee and ankle. Pulses are full. IMPRESSION: 1. Chronic neuropathic pain, right lower extremity, (?) isolated peripheral neuropathy versus radiculopathy. 2. Depression. 3. Management of high risk opioid medications. Medications renewed. Followup visit for her in 2 weeks to discuss further options. I will consult with my colleagues regarding thoughts on next step. I have assured her we will not give up on trying to make some headway in helping her with this pain that is so incapacitating. By: 1152 1206 Faizan Rowley MD /nt
[2018-12-06 08:46] VITALS: BP 138/83
--- NOTE | 2018-12-06 08:52 | NUR ---
Pain Clinic Assessment: 1. History of Osteoarthritis: LOW BACK History of Rheumatoid Arthritis: Not Applicable 2. Height: 5 ft. 3 in. 160.0 cm. Weight: 181.8 lb. oz. 82.464 kg. Patient's BMI: 32.2 3. Vital Signs: BP: 138/83 Pulse: 91 Resp: 20 Temp: 02 Sat: 97 ECG Mon: 4. Pain Intensity: 9 5. Fall Risk: Dizziness: N Needs help standing or walking: N Fallen in the last 3 months: N Fall risk comments: 6. Patient on Blood Thinner: None 7. History of Hypertension: Y 8. Opioid Therapy greater than 6 weeks: Y Opiate Contract Signed: 06/27/16 9. Risk Assessment Tool Provided: LOW RISK 2/3 10. Functional Assessment Tool: 11. Recreational Drug Use: Never Drug Type: Tobacco Use: Former Smoker Tobacco Type: Amount or Packs/day: How Many Years: Alcohol Use: No Frequency: Quant:
== END ==
LOC: PAIN 07:06
DX: G57.81 Other specified mononeuropathies of right lower limb (principal); F32.9 Major depressive disorder, single episode, unspecified; Z79.891 Long term (current) use of opiate analgesic; Z79.899 Other long term (current) drug therapy

== ENCOUNTER → 2018-12-20 | Outpatient (CLI) | payer OTHER, BC ==
[~2018-12-20] VITALS: Ht 160 cm; Wt 82.1 kg
[~2018-12-20] MED LIST changes: +MOVANTIK12.5 MG PO; +XANAX 0.5 MG0.5 M1 PO
--- NOTE | ~2018-12-20 | HPC ---
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 The patient was here today for a 25-minute extended consult regarding next steps and options for management of her intractable pain. She continues to be bothered by it significantly at night when she has difficulty falling asleep. She also has pain during the day. Her best position is walking. She has had multiple medication trials has had epidural injections and a spinal cord stimulator trial without success. She is here today coming out and the frigid weather to discuss further options for treatment. She is particularly concerned because she is moving to [place], [place] to be closer to family in the next 5 months. She would like to pursue other management options before and after she moves to [place]. She has in addition to pain a chronic anxiety disorder. She has generalized anxiety, but also has a fair amount of catastrophic thought she is even taking her pain to the extent that she will ultimately have to have her foot amputated. She was counseled today and is highly unlikely and we discussed mindfulness meditation and other strategies to reduce catastrophic thoughts and ideas. She is aided by a benzodiazepine and has for 5 years safely taken alprazolam in combination with hydrocodone. Because of the opioid, benzodiazepine concerns in high using adducts we are now seeing scrutiny in the patients who have taken the combination at much lower doses safely for long periods of time. We attempted to transition her to a buspirone a non-benzodiazepine anxiolytic, but she found it completely unhelpful and does not want to continue it. She would like to reinitiate alprazolam 0.5 mg 1-3 tablets a day for anxiety and because of her history of safe use, I have agreed to do so. This also seems to provide some relief of pain in addition to improvement of her catastrophic thoughts. Her primary side effect from her opioid medication, hydrocodone 10/325 taken 4 times daily to 5 times daily on an as needed basis is constipation and we have found Movantik 12.5 mg taken daily to be excellent in alleviating this side effect. Her pain medications are extremely helpful for her chronic abdominal pain, but if not then helpful for the neuropathic pain. We have tried a number of medications including gabapentin and Lyrica in the past. We have also used [address] [address] PAIN MANAGEMENT CONSULTATION Name: TIFFANI DAVID Room #: REG [facility] Pérez#: [id number] Admission: 12/20/18 Attend Phys: Faizan Rowley MD Discharge: Date of : 41 Report #: [id number] [place] with limited benefit for the leg pain. PQRS REVIEW: 1. She has no history of osteoarthritis, but does have spondylosis of the spine. 2. Pain intensity scored on a daily basis at least once as a 10/10. 3. She is not a fall risk. 4. She is on no blood thinner. 5. She has a history of hypertension, which is followed and treated by her primary care physician, Dr. Vasquez. 6. She is on an opioid agreement first signed in 2016. 7. She has completed an opioid risk tool and is considered at low risk. 8. She denies use of tobacco, alcohol or any illicit drug use. She is carefully safeguards her medications and uses them appropriately without signs of addiction. PHYSICAL EXAMINATION: GENERAL: She is anxious, pleasant female. VITAL SIGNS: Blood pressure 146/91, heart rate 83, respirations 16. She has a BMI of 32.1. She moves independently, walks without antalgic features. She has tenderness across her low back, which is mild. She has positive straight leg raising discomfort and pain in her right calf and right foot. There is some sensitivity there, but there is no allodynia. No palpable muscle spasm. Pulses are full. IMPRESSION: 1. Chronic right lower extremity pain with neuropathic features radiculopathy versus neuropathy. 2. Chronic depression and anxiety improved by anxiolytic and antidepressant medication. 3. Chronic intractable pain syndrome under management with opioid medications with an opioid agreement following the CDC guidelines. 4. Medications were renewed for her hydrocodone at last visit. I have renewed her alprazolam at today's visit. In addition, I spent roughly half the visit or more discussing intrathecal therapies. She was given information to consider this option. I discussed with her the risks and the benefits. It requires much more complex and termite control representative followup care, which would need to be established in [place]. I have also let her know that this in my experience has been more helpful for somatic and visceral pain then for neuropathic pain. She will consider her options and follow up with me in 2-3 months for medication management. By: [id number] Faizan Rowley MD /nt
[2018-12-20 08:39] VITALS: BP 146/91
--- NOTE | 2018-12-20 08:43 | NUR ---
Pain Clinic Assessment: 1. History of Osteoarthritis: LOW BACK History of Rheumatoid Arthritis: Not Applicable 2. Height: 5 ft. 3 in. 160.0 cm. Weight: 181.0 lb. oz. 82.101 kg. Patient's BMI: 32.1 3. Vital Signs: BP: 146/91 Pulse: 83 Resp: 16 Temp: 02 Sat: 97 ECG Mon: 4. Pain Intensity: 10 5. Fall Risk: Dizziness: N Needs help standing or walking: N Fallen in the last 3 months: N Fall risk comments: 6. Patient on Blood Thinner: None 7. History of Hypertension: Y 8. Opioid Therapy greater than 6 weeks: Y Opiate Contract Signed: 06/27/16 9. Risk Assessment Tool Provided: LOW RISK 2 10. Functional Assessment Tool: 11. Recreational Drug Use: Never Drug Type: Tobacco Use: Former Smoker Tobacco Type: Amount or Packs/day: How Many Years: Alcohol Use: No Frequency: Quant:
== END ==
LOC: PAIN 08:17
DX: M54.16 Radiculopathy, lumbar region (principal); G89.4 Chronic pain syndrome; M79.604 Pain in right leg; F32.9 Major depressive disorder, single episode, unspecified; F41.9 Anxiety disorder, unspecified; Z79.891 Long term (current) use of opiate analgesic; Z79.899 Other long term (current) drug therapy

== ENCOUNTER → 2019-03-18 | Outpatient (CLI) | payer OTHER, BC ==
[~2019-03-18] VITALS: Ht 160 cm; Wt 82.9 kg
[~2019-03-18] MED LIST changes: +MIRALAX17 GM PO
--- NOTE | ~2019-03-18 | HPC ---
[facility] [address] [place] [address] PAIN MANAGEMENT CONSULTATION Name: TIFFANI DAVID Room #: REG PIPERTheo Mcneill.#: [id number] Admission: 03/18/19 ������������������ Attend Phys: Faizan Rowley MD Discharge: ������������������ Date of : 41 Report #: [id number] THIS REPORT FOR: //name// CC: Leandro Rowley DATE OF SERVICE: 03/18/2019 CHIEF COMPLAINT: Followup visit for chronic intractable abdominal pain as well as chronic low back pain with radiculopathy and pain into the right foot with neuropathy. This is the last of visit for the patient in our pain clinic in [place] before she moves to [place]. She has been a longstanding patient. I first began seeing her in 03/2013, so it has been 6 years. Over the course of the last 6 years, we have provided her with medication to help manage chronic intractable pain. Her medication has been provided under terms of a written opioid agreement. She has been true to that agreement and has been an outstanding patient with excellent compliance. Prior to initiating therapy, she completed a functional assessment tool as well as an opioid risk tool. She is at low risk for addiction, misuse or abuse of her medication. We have consistently monitored her medication with prescription drug monitoring program when available and we have had no evidence of red flag behaviors. Her medication for intractable pain is hydrocodone 10/325 and she is allowed 5 tablets per day under terms of our agreement. We have tried other medications over the years including long-acting opioids to try and minimize her daily use of shorter acting medications. This has included trials with fentanyl patch, Butrans patch, long-acting morphine and hydrocodone. She has been able to establish a pattern of use, which has been helpful and in today's medical system, it should be noted that the hydrocodone is relatively inexpensive medication for her. She has been using alprazolam 0.5 mg for long-term anxiety disorder. She has used this combination without evidence of oversedation or other side effect. We have also discussed mindfulness meditation and other strategies for managing her anxiety disorder. She reports that her pain medication provides at least 50% pain relief. She denies side effects. She is far more active and functional when on the opioid medication. She understands critical importance of safeguarding her medication. PQRS review shows that she has some history of osteoarthritis including spondylosis of the lumbar spine. Her pain intensity 8/10 without medication, she is not a fall risk nor has she fallen in 3 months. She is on no blood thinners. All medications have been reviewed and reconciled. She is treated [address] [address] PAIN MANAGEMENT CONSULTATION Name: TIFFANI DAVID Room #: REG [facility] Beto#: [id number] Admission: 03/18/19 ������������������ Attend Phys: Faizan Rowley MD Discharge: ������������������ Date of : 41 Report #: [id number] for hypertension with losartan/hydrochlorothiazide. She is on Cymbalta for depression and takes tizanidine at bedtime to help with spasm and finds it helpful also as a sleep aid. Her functional assessment tool most recently scored is 43/70 showing a moderate intrusion of her chronic pain on her day-to-day activities. SOCIAL HISTORY: The patient denies use of tobacco and alcohol. She lives independently and provides all of her own self-care. She is retired and . PHYSICAL EXAMINATION: GENERAL: She is pleasant female. VITAL SIGNS: Blood pressure is 101/67, heart rate 75, respirations 20. She is 5 feet 3 inches, 182 pounds, BMI is 32.5. She moves independently from sitting to standing position. Her gait is stable and she does not appear to be a fall risk. NECK: Supple. Range of motion is excellent. CHEST: Clear to auscultation. CARDIAC: Rhythm is regular. ABDOMEN: Soft. There is no organomegaly. She does have some tenderness and pain below the umbilicus, which is chronic abdominal pain and pelvic pain. RECTAL AND PELVIC: Deferred. MUSCULOSKELETAL: Positive for some tenderness across the lumbosacral spine. She moves all extremities without restriction. She complains of dysesthesias throughout the right leg extending down into the calf. She describes it as a crawling sensation like snakes. There is occasional muscle spasm and tenderness. IMPRESSION: 1. Chronic intractable right leg pain with neuropathic features and radiculopathy. 2. Chronic abdominal pain and pelvic pain. 3. History of depression. 4. Management of high risk medications. RECOMMENDATION: I have given her 3 months of medication per terms of our agreement. We reviewed the importance of safeguarding. I will provide support for her to establish with a new physician in [place]. We have discussed the challenges that this may present, but as her treating physician for the last 6 years, I think her use of medication is appropriate and safe. I would strongly urge her new physician to continue her medication as we have followed her carefully under terms of the CDC guidelines and an opioid agreement. ��������������������������������������������� ���������������������������������������� By: ��������������������������������������������� [id number] Faizan Rowley MD /nt
[2019-03-18 09:16] VITALS: BP 101/67
--- NOTE | 2019-03-18 09:36 | NUR ---
Pain Clinic Assessment: 1. History of Osteoarthritis: LOW BACK History of Rheumatoid Arthritis: Not Applicable 2. Height: 5 ft. 3 in. 160.0 cm. Weight: 182.8 lb. oz. 82.918 kg. Patient's BMI: 32.4 3. Vital Signs: BP: 101/67 Pulse: 75 Resp: 20 Temp: 02 Sat: 96 ECG Mon: 4. Pain Intensity: 8 5. Fall Risk: Dizziness: N Needs help standing or walking: N Fallen in the last 3 months: N Fall risk comments: 6. Patient on Blood Thinner: None 7. History of Hypertension: Y 8. Opioid Therapy greater than 6 weeks: Y Opiate Contract Signed: 06/27/16 9. Risk Assessment Tool Provided: LOW RISK 2 10. Functional Assessment Tool: 11. Recreational Drug Use: Never Drug Type: Tobacco Use: Former Smoker Tobacco Type: Amount or Packs/day: How Many Years: Alcohol Use: No Frequency: Quant:
== END ==
LOC: PAIN 06:51
DX: G89.29 Other chronic pain (principal); M47.816 Spondylosis without myelopathy or radiculopathy, lumbar region; M79.604 Pain in right leg; R10.2 Pelvic and perineal pain; R10.9 Unspecified abdominal pain; I10 Essential (primary) hypertension; F32.9 Major depressive disorder, single episode, unspecified; Z79.891 Long term (current) use of opiate analgesic